=== PATIENT | male | born 1990 | race African-American/Black ===

== ENCOUNTER 2016-10-23 04:13 | Emergency (ER) | payer OTHER ==
--- NOTE | ~2016-10-23 | CT71 ---
[facility] A Service of [facility] RADIOLOGY TEXT RESULTS PATIENT: KELLY LUEVANO LOCATION: [facility] : [birth year] UNIT #: [id number] AGE: [address]: Humza Henderson MD SEX: M ORDER DR: [id number] [facility] [address] [place], [place] [address] [id number] E MR#: [id number] Acc #: [id number] NAME: KELLY LUEVANO : 1990 SEX: M STUDY DATE/TIME: 10/23/2016 6:12 UNIT: [facility] ROOM: STUDY DESCRIPTION: CT Head Wo Contrast Attending Physician: Humza Henderson M.D. Ordering Physician: Humza Henderson M.D. Primary Care Physician: [facility] MEDICAL IMAGING REPORT This report is preliminary unless electronic signature is present EXAM CT head 10/23. INDICATIONS While patient was at work last night about 03:00 a.m., parts fell on the patient's head. Patient has dizziness and headache secondary to trauma to top of the head. Pain currently rates 10/10. COMPARISON None. TECHNIQUE Axial noncontrast images were obtained from the skull base to the vertex. This CT exam was performed with one or more of the following radiation dose reduction techniques: automatic exposure control, adjustment of mA and/or kV according to patient size, and iterative reconstruction. FINDINGS Ventricular size and configuration are normal. There is no evidence of acute infarct or hemorrhage. There are no extraaxial fluid collections. No mass lesion or mass effect is seen. There are no skull fractures. IMPRESSION Normal noncontrast head CT. Dictated by... Chang Guerra Jr., M.D. THIS IS AN ELECTRONICALLY VERIFIED REPORT Chang Guerra Jr., M.D. at 10/23/2016 3:53 PM NIDIA/[email or web address] TD: 10/23/2016 10:16 [facility] A Service of [facility] RADIOLOGY TEXT RESULTS PATIENT: KELLY LUEVANO LOCATION: [facility] #: [id number] : [birth year] UNIT #: [id number] AGE: [address]: Humza Henderson MD SEX: M ORDER DR: JOB #: [id number] MEDICAL IMAGING REPORT Page 1 of 1 COPY
[~2016-10-23 04:13] MED LIST: ALBUTEROL17 GM INH; BENADRYL ALLERG25 M1 PO
== END 2016-10-23 06:40 | disposition home or self-care (01) ==
LOC: CED 04:13
DX: S06.0X9A Concussion with loss of consciousness of unspecified duration, initial encounter (principal); J45.909 Unspecified asthma, uncomplicated; F17.200 Nicotine dependence, unspecified, uncomplicated; W22.8XXA Striking against or struck by other objects, initial encounter; Y93.89 Activity, other specified; Y92.69 Other specified industrial and construction area as the place of occurrence of the external cause; Y99.0 Civilian activity done for income or pay
CPT/HCPCS: 70450; 99284